=== PATIENT | male | born 1955 | race Caucasian/White ===

== ENCOUNTER 2021-03-09 12:43 | Emergency (ER) | payer MEDICARE, SELFPAY ==
[2021-03-09] VITALS (37 sets, daily range): BP systolic 131–147; BP diastolic 80–93; PULSE 68–97; RESP 12–24; TEMP 36.3; O2SAT 93–99
--- NOTE | 2021-03-09 12:45 | RT.EKG_ITS ---
APPROVED REPORT Exam: Resting ECG Patient Location: E HR:81 bpm ECG Measurements Heart Rate 81 AXIS MI 262 P 68 QRSd 146 QRS 5 QT 389 T 227 QTc 447 Conclusion Sinus rhythm...normal P axis, V-rate 60- 99 Atrial premature complex...SV complex w/ short R-R interval Prolonged MI interval...MI >220, V-rate 50- 90 Probable left atrial enlargement...P >50mS, <-0.10mV V1 Left bundle branch block...QRSd>120, broad/notched R ST elevation secondary to IVCD...Multiple VCG criteria I have reviewed and interpreted ECG and agree with software generated interpretation.
[2021-03-09 14:00] LABS: Abs Immature Grans 0.01 10^3/uL (0.0-0.06); Absolute Basophil Count 0.03 10^3/uL (0.0-0.2); Absolute Eosinophil Count 0.06 10^3/uL (0.0-0.7); Absolute Lymphocyte Count 1.31 10^3/uL (1.2-3.4); Absolute Monocyte Count 0.58 10^3/uL (0.1-0.8); Absolute Neutrophil Count 2.65 10^3/uL (1.2-6.7); Basophils % 0.6; Eosinophils % 1.3; HCT 50.5 % (40.0-50.0); HGB 17.1 g/dL (13.5-17.5); Immature Grans % 0.2; Lymphocytes % 28.2; MCH 28.7 pg (27.0-33.0); MCHC 33.9 % (32.0-36.0); MCV 84.9 fL (80-95); MPV 9.6 fL (8.0-11.0); Monocytes % 12.5; Neutrophils % 57.2; Nucleated RBC 0 %; Platelet Count 149 10^3/uL (130-400); RBC 5.95 10^6/uL (4.36-5.78); RDW 12.2 % (11.8-14.1); RDW-SD 37.3 fL; WBC 4.64 10^3/uL (4.4-10.8)
[2021-03-09 14:21] LABS: ALT 35 U/L (16-63); AST 23 U/L (15-37); Alkaline Phosphatase 105 U/L (46-116); Anion Gap 6.7 mmol/L (3-11); BUN 24 mg/dL (7-18); Bilirubin, Total 0.7 mg/dL (0.2-1.0); CO2 30.3 mmol/L (21.0-32.0); CREATININE 1.7 mg/dL (0.70-1.30); Calcium 9.5 mg/dL (8.5-10.1); Chloride 101 mmol/L (98-107); Glucose 142 mg/dL (74-106); Potassium 3.9 mmol/L (3.5-5.1); Sodium 138 mmol/L (136-145); Troponin I < 0.05 ng/mL (<0.06)
[2021-03-09 14:28] LABS: INR 1.1 (0.9-1.1); PTT Activated 25.4 sec (21.0-27.5); Prothrombin Time 10.7 sec (9.3-11.0)
--- NOTE | 2021-03-09 14:31 | DI.CT_ITS ---
EXAM: CT HEAD WO CLINICAL HISTORY: dizzy. TECHNIQUE: Imaging Protocol: Axial computed tomography images with coronal and sagittal reformatted images were created and reviewed COMPARISON: No exams were available for comparison FINDINGS: Ventricles and Extra axial spaces: Normal in size and morphology for the patient's age. Hemorrhage: None. Cerebral parenchyma: Normal. Midline shift: None. Brainstem/Cerebellum: Normal. Calvarium: Normal. Visualized Paranasal sinuses/Mastoids: Clear. Soft Tissues: Unremarkable. IMPRESSION: No acute intracranial process. RADIATION DOSE DELIVERED: 766.15mGy.cm Total DLP DATA REPOSITORY: All CT scans at this facility are submitted to the National Radiology Data Registry (NRDR) Dose Index Registry (DIR) with the [employer] (A[employer]). RADIATION OPTIMIZATION: All CT scans at this facility use at least one of these dose optimization te chniques: automated exposure control; mA and/or kV adjustment per patient size (includes targeted exa ms where dose is matched to clinical indication); or iterative reconstruction.
[2021-03-09 14:37] LABS: D-Dimer 1218 ng/mlFEU (<500)
--- NOTE | 2021-03-09 14:37 | DI.RAD_ITS ---
EXAM: XR CHEST 2V PA LATERAL CLINICAL HISTORY: dizzy, sob TECHNIQUE: 2D digital imaging was performed. COMPARISON: No exams were available for comparison FINDINGS: MEDIASTINUM: Normal. HEART: Normal. PULMONARY VASCULATURE: Normal. LUNGS: Clear. PLEURAL SPACE: No pleural effusion or pneumothorax. BONE:Normal. IMPRESSION: No acute pulmonary findings. DATA REPOSITORY: RADIATION DOSE DELIVERED:
[2021-03-09 14:43] LABS: Magnesium 1.9 mg/dL (1.8-2.4); NT-proBNP 10 pg/mL (<300)
--- NOTE | 2021-03-09 14:45 | DI.CT_ITS ---
EXAM: CT CHEST PE CTA CLINICAL HISTORY: dizzy, cp, sob, elevated dimer. TECHNIQUE: Imaging Protocol: Axial CT angiography was performed with multi-slice acquisition and mu lti-planar and/or 3D reconstructions. CONTRAST MATERIAL: Intravenous: Visi paque 320 contrast volume:100 ml COMPARISON: CR XR CHEST 2V PA LATERAL from 03/09/2021 FINDINGS: Pulmonary Arteries: No evidence of filling defect to suggest pulmonary emboli. Tracheobronchial tree: Patent where visualized. Mediastinum and Stefanie: No dominant adenopathy or fluid collection. Pulmonary parenchyma: No consolidation or dominant measurable mass. No architectural distortion. Min imal dependent changes. Pleura: No effusion or pneumothorax. Heart: The heart is not dilated. No coronary artery calcifications are seen. Aorta: Thoracic aorta non-dilated. No significant atherosclerotic changes. Upper abdomen: Unremarkable. Bones: Normal. Soft tissues: Mild bilateral gynecomastia. IMPRESSION: No evidence of pulmonary embolism. No pulmonary infiltrates. RADIATION DOSE DELIVERED: 436.16mGy.cm Total DLP DATA REPOSITORY: All CT scans at this facility are submitted to the National Radiology Data Registry (NRDR) Dose Index Registry (DIR) with the [employer] (ACR). RADIATION OPTIMIZATION: All CT scans at this facility use at least one of these dose optimization te chniques: automated exposure control; mA and/or kV adjustment per patient size (includes targeted exa ms where dose is matched to clinical indication); or iterative reconstruction.
--- NOTE | 2021-03-09 16:16 | ED.GENADUL_ITS ---
Discharge Plan Disposition Patient Disposition: HOME Condition: Stable Discharge Details Clinical Impression: Breath shortness Primary Care Provider: Unknown,Unknown ED Provider: Pravin Sen Home Meds and New Rx's Prescriptions: Continued omeprazole magnesium [Prilosec OTC] 20 mg Tablet,Delayed Release (Dr/Ec) 20 mg PO DAILY RF: 0 aspirin 325 mg Tablet 325 mg PO DAILY AM RF: 0 Discharge Instructions Instructions: Dyspnea (ED) Additional Instructions: Imaging was reassuring here today. Please encourage water intake. Please fol low-up with primary care next week for reevaluation. If you develop increased chest pain, shortness of breath, inability stay hydrated or other new/worsening symptoms please seek care urgently once again. Discharge Data Discharge Date/Time-TO BE ENTERED AT DEPARTURE: 03/09/21 18:05 Medical Decision Making <BEE Goss - Last Filed: 03/10/21 14:37> This is a 65-year-old gentleman, no significant past medical history presented to the ER today reporting month-long history of morning shortness of breath, chest tightness, dizziness like he is off balance, worsening since Friday after he received his second Covid vaccine. He does report over the past year he has been less active, and has increased stress. He is currently asymptomatic. Clinically he appears well, nontoxic, neurologically intact. Differential is wide and includes but not excluded to CVA, TIA, ACS, PE, anemia, electrolyte abnormality, JESSIE, pneumonia, etc. Will initiate IV access, cardiac work-up including D-dimer and chest x-ray. Patient reports A. fib in his family, he gets a quick heart rate once every few months, most recently several days ago. In reality a 48 Holter monitor is likely not very beneficial given his intermittent symptoms, likely needs a longer Holter from a primary care provider Initial laboratory values reveal a white blood cell count of 4.64 hemoglobin 17.1 hematocrit 50.5 platelet count 149. INR 1.1, D-dimer 1218, electrolytes unremarkable. Creatinine 1.7 with a GFR 48.4. calcium 9.5 magnesium 1.9, troponin less than 0.05. Will obtain repeat EKG and troponin at [address] negative per radiology. Chest x-ray negative per radiology. Will pursue CTA of chest given his elevated D-dimer. Patient made aware of this plan. He remains asymptomatic. Chest CTA negative per radiology. At the time of signout to my colleague Ryan he remains asymptomatic, awaiting repeat troponin and EKG. I received I received a call during the evening on March 09 PA Ryan. Subsequent EKG revealed no bundle branch block from initial presentation. Troponin unremarkable, discharged home. Recommended checking on the patient the following day. On March 10 at 10:40 AM I contacted the patient on his cell phone, left a message. He contacted me back at 1152 on March 10. He remains asymptomatic and feels well. I explained to him again the changes of his EKG and the importance of outpatient primary care follow-up and stress test. He was also encouraged to return to the ER for new or worsening symptoms. I have placed him on the care management list to help expedite outpatient primary care follow-up. Patient has no additional questions or concerns and appreciates the thoroughness of a follow-up call the following day. Medical Records Medical records narrative: No no medical records available, patient moved here from [place], does not have a primary care provider Lab Data Lab results reviewed: Yes I reviewed the patient's lab results. Labs: Laboratory Tests Range/Units 03/09/21 03/09/21 03/09/21 13:10 13:10 13:10 WBC (4.4-10.8) 10^3/uL RBC (4.36-5.78) 10^6/uL Hgb (13.5-17.5) g/dL Hct (40.0-50.0) % MCV (80-95) fL MCH (27.0-33.0) pg MCHC (32.0-36.0) % RDW (11.8-14.1) % Plt Count (130-400) 10^3/uL MPV (8.0-11.0) fL Immature Gran % Neutrophils % Lymphocytes % Monocytes % Eosinophils % Basophils % Nucleated RBC % % Absolute Neutrophils (1.2-6.7) 10^3/uL Absolute Lymphocytes (1.2-3.4) 10^3/uL Absolute Monocytes (0.1-0.8) 10^3/uL Absolute Eosinophils (0.0-0.7) 10^3/uL Absolute Basophils (0.0-0.2) 10^3/uL PT (9.3-11.0) sec 10.7 INR (0.9-1.1) 1.1 APTT (21.0-27.5) sec 25.4 D-Dimer (<500) ng/mlFEU 1218 H Sodium (136-145) mmol/L 138 Potassium (3.5-5.1) mmol/L 3.9 Chloride (98-107) mmol/L 101 Carbon Dioxide (21.0-32.0) mmol/L 30.3 Anion Gap (3-11) mmol/L 6.7 BUN (7-18) mg/dL 24 H Creatinine (0.70-1.30) mg/dL 1.7 H Estimated GFR/1.73 m2 (mL/min/1.73m2) 40.40 Glucose (74-106) mg/dL 142 H Calcium (8.5-10.1) mg/dL 9.5 Magnesium (1.8-2.4) mg/dL 1.9 Total Bilirubin (0.2-1.0) mg/dL 0.7 AST (15-37) U/L 23 ALT (16-63) U/L 35 Alkaline Phosphatase (46-116) U/L 105 Troponin I (<0.06) ng/mL < 0.05 NT-Pro-B Natriuret Pep (<300) pg/mL 10 Total Protein (6.4-8.2) g/dL 8.0 Albumin (3.4-5.0) g/dL 4.0 Range/Units 03/09/21 03/09/21 13:10 16:50 WBC (4.4-10.8) 10^3/uL 4.64 RBC (4.36-5.78) 10^6/uL 5.95 H Hgb (13.5-17.5) g/dL 17.1 Hct (40.0-50.0) % 50.5 H MCV (80-95) fL 84.9 MCH (27.0-33.0) pg 28.7 MCHC (32.0-36.0) % 33.9 RDW (11.8-14.1) % 12.2 Plt Count (130-400) 10^3/uL 149 MPV (8.0-11.0) fL 9.6 Immature Gran % 0.2 Neutrophils % 57.2 Lymphocytes % 28.2 Monocytes % 12.5 Eosinophils % 1.3 Basophils % 0.6 Nucleated RBC % % 0 Absolute Neutrophils (1.2-6.7) 10^3/uL 2.65 Absolute Lymphocytes (1.2-3.4) 10^3/uL 1.31 Absolute Monocytes (0.1-0.8) 10^3/uL 0.58 Absolute Eosinophils (0.0-0.7) 10^3/uL 0.06 Absolute Basophils (0.0-0.2) 10^3/uL 0.03 PT (9.3-11.0) sec INR (0.9-1.1) APTT (21.0-27.5) sec D-Dimer (<500) ng/mlFEU Sodium (136-145) mmol/L Potassium (3.5-5.1) mmol/L Chloride (98-107) mmol/L Carbon Dioxide (21.0-32.0) mmol/L Anion Gap (3-11) mmol/L BUN (7-18) mg/dL Creatinine (0.70-1.30) mg/dL Estimated GFR/1.73 m2 (mL/min/1.73m2) Glucose (74-106) mg/dL Calcium (8.5-10.1) mg/dL Magnesium (1.8-2.4) mg/dL Total Bilirubin (0.2-1.0) mg/dL AST (15-37) U/L ALT (16-63) U/L Alkaline Phosphatase (46-116) U/L Troponin I (<0.06) ng/mL < 0.05 NT-Pro-B Natriuret Pep (<300) pg/mL Total Protein (6.4-8.2) g/dL Albumin (3.4-5.0) g/dL ECG Data Attestation: I personally reviewed and interpreted this ECG (s) as follows: Interpretation: Please see official report by Dr. Ambrocio. Sinus rhythm, ventricular of 81. Atrial premature complexes. Prolonged UT interval. Left bundle branch block. No STEMI <Pravin Sen MD - Last Filed: 03/09/21 18:14> Patient was in process of discharge by PA when I reviewed the ECG. Repeat ECG was reviewed and interpreted by me: Sinus rhythm 64 bpm, left axis deviation, right bundle branch block, probable left ventricular hypertrophy, please see report. This ECG shows resolution of previous left bundle branch block pattern from earlier today. I reviewed labs, initial troponin negative, second troponin negative and unchanged. I went and spoke with the patient: He notes that [place] and notes previously told that he may have heart disease but after diagnostics was told that in fact he did not. Patient notes has had no chest pain now and is feeling well and is requesting discharge. I discussed results including ECG findings with the patient. Plan will be for discharge with outpatient follow-up. I will order outpatient stress test to expedite outpatient work-up. I will ask care management to arrange for follow- up with new PCP. Usual and customary discharge instructions were reviewed with the patient. I am encouraged him to return immediately should have any worsening or new concerning symptoms. Patient verbalized understanding of discharge plan/recommendations. <BEE Wright - Last Filed: 03/09/21 23:31> Can transition myself and Yves Rollins PA-C. Please see his initial note regarding history, presentation and exam. In brief, patient is a pleasant 55-year-old male accompanied by his with chief complaint of shortness of b reath, dizziness, poor appetite. Patient endorses a large amount of stress and anxiety. Feels like he is doing a stress test of the day. He reports he did receive the second COVID-19 vaccine today and that symptoms were since then. At the time I assume care, repeat troponin is pending. Initial work-up was significant for creatinine of 1.7. His D-dimer was elevated but CT for PE protocol was without significant normality Repeat troponin remains less than 0.05. I discussed the findings with the patient and his . He is denying any chest pain. He is not actively having symptoms. Patient is new to the area. I would like him to have follow-up with primary care next week for reevaluation. Patient will need outpatient stress testing. Strict return precautions were discussed. All the questions and concerns were addressed given this plan. EKG was reviewed by Dr. Sen. Significant for left aspect deviation, right bundle branch block, LVH. This shows improvement of the left bundle branch block from earlier today. Concern for dynamic changes on the patient's EKG. Patient was evaluated by Dr. Sen. Patient would prefer to be discharged home. Patient will have prompt outpatient stress testing as well as follow-up with primary care next week. Again, return questions were discussed. HPI <BEE Goss - Last Filed: 03/10/21 14:37> General Mode of arrival: ambulatory . Date/Time Provider Initiated Documentation: 03/09/21 13:48 . Limitations to Documentation: no limitations . Information obtained by: patient . HPI Narrative: This is a 65-year-old gentleman who moved to the area approximately 1 year ago, has not yet established a primary care provider. He was evaluated at the local urgent care and subsequently sent to the ER for further evaluation. He reports that for the past month or so he has had intermittent shortness of breath, dizziness like he feels off balance, and a chest tightness. Denies feeling like the room is spinning. Has not felt presyncopal. Has not fallen. He states that he typically gets this symptoms almost every morning and they subsequently resolved throughout the day. He received his second Covid vaccine on . Since that time he feels as though his symptoms have intensified and has been present at different times throughout the day, not just the morning. Patient reports that he is currently asymptomatic. He does report that over the past year given the pandemic he has been far less active and does not feel as healthy as he did 1 year ago. Overall he does feel increased stress. Patient denies headache, fever, chest pain, cough, abdominal pain, nausea, vomiting, numbness, tingling, weakness. Patient denies any significant past medical history, he is not a smoker. Patient states that he does have a family history of A. fib and he feels as though every few months he does go into a brief arrhythmia for no longer than 15 seconds, does wonder if he has A. fib. He states that the last episode was probably in the last week or so. Related Data Home Medications Medication Instructions Recorded Confirmed aspirin 325 mg PO DAILY AM 03/09/21 03/09/21 omeprazole magnesium [Prilosec OTC] 20 mg PO DAILY 03/09/21 03/09/21 Allergies Allergy/AdvReac Type Severity Reaction Status Date / Time No Known Allergies Allergy Unverified 03/09/21 13:04 General Stated Complaint: SOB LYNDSEY: 2 Review of Systems <BEE Goss - Last Filed: 03/10/21 14:37> Constitutional Constitutional: Denies fatigue, Denies fever(s), Denies headache(s) and Denies weakness Eyes Eyes: Reports blurry vision (Occasional, none) ENT Ears, Nose, Mouth, and Throat: Reports dizziness, Denies headache(s) and Denies neck pain Cardiovascular Cardiovascular: Reports chest pain (tightness) and Reports dyspnea Respiratory Respiratory: Denies cough and Reports dyspnea Gastrointestinal Gastrointestinal: Denies abdominal pain, Denies nausea and Denies vomiting Musculoskeletal Musculoskeletal: Denies back pain, Denies neck pain and Denies tingling Integumentary/Breasts Skin/Breast: Denies rash Neurologic Neurologic: Reports dizziness, Denies headache(s), Denies tingling and Denies weakness Psychiatric Psychiatric: Reports other (Increased stress) Endocrine Endocrine: Denies fatigue Hematologic/Lymphatic Hematologic/Lymphatic: Denies easy bleeding and Denies easy bruising PFSH <BEE Goss - Last Filed: 03/10/21 14:37> Social History Smoking risk assessment performed?: No Exam <BEE Goss - Last Filed: 03/10/21 14:37> Const General: cooperative, healthy appearing, comfortable and no acute distress Orientation: alert, awake and oriented x3 HENMT Head: normal to inspection, normocephalic and atraumatic Ears: external ears normal, TM's normal bilaterally and EAC's normal Face and sinus: normal facial exam Mouth: moist mucous membranes Throat: posterior oropharynx normal Eyes General: appearance normal, both eyes and all related structures Alignment and Position: alignment normal Periorbital: periorbital findings normal Eyelids: eyelids normal Conjunctivae: conjunctivae normal Sclera: sclerae normal Cornea: corneas normal Pupils: PERRL EOM: EOM intact bilaterally Direct ophthalmoscopy: normal light reflex Neck Neck: normal visual inspection, full ROM, no meningeal signs, trachea midline and supple Resp Effort & Inspection: normal respiratory effort and able to speak in complete sentences Auscultation: clear to auscultation bilaterally Cardio Rate: regular rate Rhythm: regular rhythm GI Palpation: soft, not firm, no guarding, no pulsatile masses and nontender Auscultation: normal bowel sounds Back/Spine/Pelvis Back: No back tenderness Skin General skin exam: no rashes or lesions noted Neuro General: patient alert, patient awake, patient oriented x3, moves all extremities and no focal motor deficits Cranial Nerves: CN's II-XI intact bilaterally Cognition: normal cognition Speech: speech normal Gait: normal gait Motor: muscle tone normal throughout, strength 5/5 throughout, no movement abnormalities noted and no fasciculations Sensory Exam: no sensory deficits noted Extrem General: normal to inspection, full ROM, capillary refill normal, no pedal edema and no calf tenderness Psych Appearance: grossly normal Mental Status: mental status grossly normal Course <BEE Goss - Last Filed: 03/10/21 14:37> Vital Signs Vital signs: Vital Signs Temperature 36.3 C L 03/09/21 12:53 Pulse 82 03/09/21 12:53 Respiratory Rate 18 03/09/21 12:53 Blood Pressure 147/92 H 03/09/21 12:53 Pulse Oximetry 98 03/09/21 12:53 Temperature 36.3 C L 03/09/21 12:53 Temperature Source Skin 03/09/21 12:53 Pulse 82 03/09/21 12:53 Respiratory Rate 15 03/09/21 14:07 Respiratory Effort 03/09/21 14:07 Respiratory Depth Normal 03/09/21 14:07 Respiratory Pattern Normal 03/09/21 14:07 Blood Pressure 147/92 H 03/09/21 12:53 Blood Pressure Position Sitting 03/09/21 12:53 Pulse Oximetry 98 03/09/21 12:53 Oxygen Delivery Method Room Air 03/09/21 12:53 Oxygen Flow Rate 0 03/09/21 12:53 Pain Level 0 03/09/21 12:53 Lab/Test Results Lab/Test Results: Laboratory Tests Range/Units 03/09/21 03/09/21 03/09/21 13:10 13:10 13:10 WBC (4.4-10.8) 10^3/uL RBC (4.36-5.78) 10^6/uL Hgb (13.5-17.5) g/dL Hct (40.0-50.0) % MCV (80-95) fL MCH (27.0-33.0) pg MCHC (32.0-36.0) % RDW (11.8-14.1) % Plt Count (130-400) 10^3/uL MPV (8.0-11.0) fL Immature Gran % Neutrophils % Lymphocytes % Monocytes % Eosinophils % Basophils % Nucleated RBC % % Absolute Neutrophils (1.2-6.7) 10^3/uL Absolute Lymphocytes (1.2-3.4) 10^3/uL Absolute Monocytes (0.1-0.8) 10^3/uL Absolute Eosinophils (0.0-0.7) 10^3/uL Absolute Basophils (0.0-0.2) 10^3/uL PT (9.3-11.0) sec 10.7 INR (0.9-1.1) 1.1 APTT (21.0-27.5) sec 25.4 D-Dimer (<500) ng/mlFEU 1218 H Sodium (136-145) mmol/L 138 Potassium (3.5-5.1) mmol/L 3.9 Chloride (98-107) mmol/L 101 Carbon Dioxide (21.0-32.0) mmol/L 30.3 Anion Gap (3-11) mmol/L 6.7 BUN (7-18) mg/dL 24 H Creatinine (0.70-1.30) mg/dL 1.7 H Estimated GFR/1.73 m2 (mL/min/1.73m2) 40.40 Glucose (74-106) mg/dL 142 H Calcium (8.5-10.1) mg/dL 9.5 Magnesium (1.8-2.4) mg/dL 1.9 Total Bilirubin (0.2-1.0) mg/dL 0.7 AST (15-37) U/L 23 ALT (16-63) U/L 35 Alkaline Phosphatase (46-116) U/L 105 Troponin I (<0.06) ng/mL < 0.05 NT-Pro-B Natriuret Pep (<300) pg/mL 10 Total Protein (6.4-8.2) g/dL 8.0 Albumin (3.4-5.0) g/dL 4.0 Range/Units 03/09/21 13:10 WBC (4.4-10.8) 10^3/uL 4.64 RBC (4.36-5.78) 10^6/uL 5.95 H Hgb (13.5-17.5) g/dL 17.1 Hct (40.0-50.0) % 50.5 H MCV (80-95) fL 84.9 MCH (27.0-33.0) pg 28.7 MCHC (32.0-36.0) % 33.9 RDW (11.8-14.1) % 12.2 Plt Count (130-400) 10^3/uL 149 MPV (8.0-11.0) fL 9.6 Immature Gran % 0.2 Neutrophils % 57.2 Lymphocytes % 28.2 Monocytes % 12.5 Eosinophils % 1.3 Basophils % 0.6 Nucleated RBC % % 0 Absolute Neutrophils (1.2-6.7) 10^3/uL 2.65 Absolute Lymphocytes (1.2-3.4) 10^3/uL 1.31 Absolute Monocytes (0.1-0.8) 10^3/uL 0.58 Absolute Eosinophils (0.0-0.7) 10^3/uL 0.06 Absolute Basophils (0.0-0.2) 10^3/uL 0.03 PT (9.3-11.0) sec INR (0.9-1.1) APTT (21.0-27.5) sec D-Dimer (<500) ng/mlFEU Sodium (136-145) mmol/L Potassium (3.5-5.1) mmol/L Chloride (98-107) mmol/L Carbon Dioxide (21.0-32.0) mmol/L Anion Gap (3-11) mmol/L BUN (7-18) mg/dL Creatinine (0.70-1.30) mg/dL Estimated GFR/1.73 m2 (mL/min/1.73m2) Glucose (74-106) mg/dL Calcium (8.5-10.1) mg/dL Magnesium (1.8-2.4) mg/dL Total Bilirubin (0.2-1.0) mg/dL AST (15-37) U/L ALT (16-63) U/L Alkaline Phosphatase (46-116) U/L Troponin I (<0.06) ng/mL NT-Pro-B Natriuret Pep (<300) pg/mL Total Protein (6.4-8.2) g/dL Albumin (3.4-5.0) g/dL Sign Out <BEE Goss - Last Filed: 03/10/21 14:37> Sign Out Data: Sign Out Comment: Presents for dizziness, chest pressure, shortness of breath x1 month. Worse since his second Covid vaccine on Friday. Initial work-up in the ER is unremarkable including CTA of the chest. Patient remains asymptomatic. Awaiting a repeat troponin and EKG at the 3-hour timeframe Last updated by Delbert Rollins PA at 03/09/21 16:18
--- NOTE | 2021-03-09 16:45 | RT.EKG_ITS ---
APPROVED REPORT Exam: Resting ECG Patient Location: E HR:64 bpm ECG Measurements Heart Rate 64 AXIS RI 234 P 58 QRSd 123 QRS -65 QT 401 T 35 QTc 414 Conclusion Sinus rhythm...normal P axis, V-rate 60- 99 Prolonged RI interval...RI >220, V-rate 50- 90 RBBB and LAFB...QRSd >120mS, axis(-40,240) Probable left ventricular hypertrophy...(RaVL+SV3)xQRSd >280
[2021-03-09 17:16] LABS: Troponin I < 0.05 ng/mL (<0.06)
--- NOTE | 2021-03-09 18:01 | NUR.NOTE ---
Nursing Note:Patient placed on care management referral for follow up care to establish a local PCP as requested by Jojo Davis.
--- NOTE | 2021-03-12 10:58 | CMPROGNOTE_ITS ---
- If Service Date Differs Date of service: 03/12/21 Time of Service: 10:58 Care Management Progress Note Pierre is seen in the ED for shortness of breath and chest pain. At the request of ED provider, DAJUAN coordinates a referral to BEE Prasad, of [facility], on-call provider, to assist Pierre in obtaining a follow up appointment and in establishing care with a PCP. He has Medicare for insurance.
== END 2021-03-09 18:05 | disposition home or self-care (01) ==
PROVIDERS: Physician Assistant; Emergency Provider Student in an Organized Health Care Education/Training Program
DX: R06.02 Shortness of breath (principal); R42 Dizziness and giddiness; R79.89 Other specified abnormal findings of blood chemistry
CPT/HCPCS: 71275; 80053; 93005; 99285; 70450; 71046; 83735; 83880; 84484; 85025; 85379; 85610; 85730; 93010; 99283

== ENCOUNTER 2021-04-16 17:19 | Outpatient (REF) | payer MEDICARE, SELFPAY ==
[2021-04-16 21:00] LABS: Abs Immature Grans 0.01 10^3/uL (0.0-0.06); Absolute Basophil Count 0.02 10^3/uL (0.0-0.2); Absolute Eosinophil Count 0.04 10^3/uL (0.0-0.7); Absolute Lymphocyte Count 0.81 10^3/uL (1.2-3.4); Absolute Monocyte Count 0.56 10^3/uL (0.1-0.8); Absolute Neutrophil Count 3.94 10^3/uL (1.2-6.7); Basophils % 0.4; Eosinophils % 0.7; HCT 46.4 % (40.0-50.0); HGB 16.1 g/dL (13.5-17.5); Immature Grans % 0.2; Lymphocytes % 15.1; MCH 29.5 pg (27.0-33.0); MCHC 34.7 % (32.0-36.0); MPV 10.4 fL (8.0-11.0); Monocytes % 10.4; Neutrophils % 73.2; Nucleated RBC 0 %; Platelet Count 144 10^3/uL (130-400); RBC 5.46 10^6/uL (4.36-5.78); RDW 12.3 % (11.8-14.1); RDW-SD 37.7 fL; WBC 5.38 10^3/uL (4.4-10.8)
[2021-04-18 11:29] LABS: Lyme Ab w Rflx to Lyme Confirm Negative (Negative)
[2021-04-23 10:10] LABS: Anaplasma phagocytophilum Negative (Negative); B. miyamotoi PCR Negative (Negative); Babesia divergens/MO-1 Negative (Negative); Babesia duncani Negative (Negative); Babesia microti Negative (Negative); Ehrlichia chaffeensis Negative (Negative); Ehrlichia ewingii/canis Negative (Negative); Ehrlichia muris eauclairensis Negative (Negative)
== END 2021-04-16 17:20 | disposition home or self-care (01) ==
LOC: NCHCN 17:19
PROVIDERS: Visit Provider Nurse Practitioner Family
DX: R50.9 Fever, unspecified (principal); M79.18 Myalgia, other site; W57.XXXA Bitten or stung by nonvenomous insect and other nonvenomous arthropods, initial encounter; T14.8XXA Other injury of unspecified body region, initial encounter
CPT/HCPCS: 87798; 85025; 86618

== ENCOUNTER 2022-08-12 13:40 | Outpatient (REF) | payer MEDICARE, SELFPAY ==
[2022-08-12 18:06] LABS: Absolute Basophil Count 0.03 10^3/uL (0.0-0.2); Absolute Eosinophil Count 0.07 10^3/uL (0.0-0.7); Absolute Lymphocyte Count 1.37 10^3/uL (1.2-3.4); Absolute Monocyte Count 0.45 10^3/uL (0.1-0.8); Absolute Neutrophil Count 3.54 10^3/uL (1.2-6.7); Basophils % 0.5; Eosinophils % 1.3; HCT 48.6 % (40.0-50.0); Lymphocytes % 25.1; MCH 28.7 pg (27.0-33.0); MCHC 32.9 % (32.0-36.0); MCV 87 fL (80-95); Monocytes % 8.2; Neutrophils % 64.9; Platelet Count 156 10^3/uL (130-400); RBC 5.57 10^6/uL (4.36-5.78); RDW 13.7 % (11.8-14.1); WBC 5.46 10^3/uL (4.4-10.8)
[2022-08-12 18:18] LABS: ALT 27 U/L (16-63); AST 27 U/L (15-37); Albumin 4.5 g/dL (3.4-5.0); Alkaline Phosphatase 119 U/L (46-116); Anion Gap 6.5 mmol/L (3-11); BUN 21 mg/dL (7-18); Bilirubin, Total 0.5 mg/dL (0.2-1.0); C-Reactive Protein 0.87 mg/dL (0.0-0.3); CO2 31.5 mmol/L (21.0-32.0); CREATININE 1.2 mg/dL (0.70-1.30); Calcium 9.8 mg/dL (8.5-10.1); Chloride 100 mmol/L (98-107); Estimated GFR 65.46 (mL/min/1.73m2); Glucose 91 mg/dL (74-106); Potassium 4.5 mmol/L (3.5-5.1); Sodium 138 mmol/L (136-145); Total Protein 8.4 g/dL (6.4-8.2)
[2022-08-12 18:29] LABS: ESR 18 mm/hr (0-20)
== END 2022-08-12 13:41 | disposition home or self-care (01) ==
LOC: LBN 13:40
DX: A69.29 Other conditions associated with Lyme disease (principal)
CPT/HCPCS: 80053; 85652; 85025; 86140

== ENCOUNTER 2022-08-19 13:44 | Outpatient (REF) | payer MEDICARE, SELFPAY ==
[2022-08-19 14:07] LABS: Abs Immature Grans 0.02 10^3/uL (0.0-0.06); Absolute Basophil Count 0.05 10^3/uL (0.0-0.2); Absolute Eosinophil Count 0.09 10^3/uL (0.0-0.7); Absolute Lymphocyte Count 1.34 10^3/uL (1.2-3.4); Absolute Monocyte Count 0.42 10^3/uL (0.1-0.8); Absolute Neutrophil Count 4.02 10^3/uL (1.2-6.7); Basophils % 0.8; Eosinophils % 1.5; HCT 47.6 % (40.0-50.0); Immature Grans % 0.3; Lymphocytes % 22.6; MCH 28.9 pg (27.0-33.0); MCHC 33.6 % (32.0-36.0); MCV 86 fL (80-95); MPV 9.5 fL (8.0-11.0); Monocytes % 7.1; Neutrophils % 67.7; Platelet Count 154 10^3/uL (130-400); RBC 5.53 10^6/uL (4.36-5.78); RDW 13.3 % (11.8-14.1); RDW-SD 41.2 fL; WBC 5.94 10^3/uL (4.4-10.8)
[2022-08-19 14:09] LABS: ESR 13 mm/hr (0-20)
[2022-08-19 14:16] LABS: ALT 31 U/L (16-63); AST 26 U/L (15-37); Albumin 4.5 g/dL (3.4-5.0); Alkaline Phosphatase 128 U/L (46-116); Anion Gap 7.7 mmol/L (3-11); BUN 19 mg/dL (7-18); Bilirubin, Total 0.7 mg/dL (0.2-1.0); C-Reactive Protein 0.44 mg/dL (0.0-0.3); CO2 31.3 mmol/L (21.0-32.0); CREATININE 1.2 mg/dL (0.70-1.30); Calcium 9.8 mg/dL (8.5-10.1); Chloride 99 mmol/L (98-107); Estimated GFR 65.46 (mL/min/1.73m2); Glucose 97 mg/dL (74-106); Potassium 4.5 mmol/L (3.5-5.1); Sodium 138 mmol/L (136-145); Total Protein 8.1 g/dL (6.4-8.2)
== END 2022-08-19 13:45 | disposition home or self-care (01) ==
LOC: NCHCN 13:44
PROVIDERS: Visit Provider Internal Medicine
DX: A69.29 Other conditions associated with Lyme disease (principal); R79.89 Other specified abnormal findings of blood chemistry
CPT/HCPCS: 80053; 85652; 85025; 86140

== ENCOUNTER 2022-08-26 13:35 | Outpatient (REF) | payer MEDICARE, SELFPAY ==
[2022-08-26 16:38] LABS: Abs Immature Grans 0.01 10^3/uL (0.0-0.06); Absolute Basophil Count 0.04 10^3/uL (0.0-0.2); Absolute Eosinophil Count 0.06 10^3/uL (0.0-0.7); Absolute Lymphocyte Count 1.16 10^3/uL (1.2-3.4); Absolute Monocyte Count 0.46 10^3/uL (0.1-0.8); Absolute Neutrophil Count 3.67 10^3/uL (1.2-6.7); Basophils % 0.7; Eosinophils % 1.1; HCT 46.5 % (40.0-50.0); HGB 15.8 g/dL (13.5-17.5); Immature Grans % 0.2; Lymphocytes % 21.5; MCV 86 fL (80-95); MPV 9.7 fL (8.0-11.0); Monocytes % 8.5; Platelet Count 146 10^3/uL (130-400); RBC 5.44 10^6/uL (4.36-5.78); RDW 13.4 % (11.8-14.1); RDW-SD 41.2 fL
[2022-08-26 16:58] LABS: ESR 11 mm/hr (0-20)
[2022-08-26 18:53] LABS: ALT 28 U/L (16-63); AST 24 U/L (15-37); Albumin 4.3 g/dL (3.4-5.0); Alkaline Phosphatase 119 U/L (46-116); Anion Gap 8.5 mmol/L (3-11); BUN 23 mg/dL (7-18); Bilirubin, Total 0.6 mg/dL (0.2-1.0); C-Reactive Protein 1.17 mg/dL (0.0-0.3); CO2 28.5 mmol/L (21.0-32.0); CREATININE 1.2 mg/dL (0.70-1.30); Calcium 9.4 mg/dL (8.5-10.1); Chloride 101 mmol/L (98-107); Estimated GFR 65.46 (mL/min/1.73m2); Glucose 152 mg/dL (74-106); Potassium 4.4 mmol/L (3.5-5.1); Sodium 138 mmol/L (136-145); Total Protein 7.9 g/dL (6.4-8.2)
== END 2022-08-26 13:36 | disposition home or self-care (01) ==
LOC: LBN 13:35
PROVIDERS: Visit Provider Internal Medicine
DX: A69.29 Other conditions associated with Lyme disease (principal); R79.89 Other specified abnormal findings of blood chemistry
CPT/HCPCS: 80053; 85652; 85025; 86140